=== PATIENT | male | born 1975 | race Native Hawaiian/Other Pacific Islander ===

== ENCOUNTER 2018-02-22 21:46 | Emergency (ER) | payer OTHER ==
[2018-02-22 22:16] VITALS: TEMP 98.4
[2018-02-22] MEDS ORDERED: PROPARACAINE/FLUORESCEIN SOD 100 DROP/5 ML BOTTLE OS STA (22:30)
[2018-02-22] MEDS ORDERED: PROPARACAINE/FLUORESCEIN SOD 100 DROP/5 ML BOTTLE ONE (22:40)
--- NOTE | 2018-02-22 23:10 | ED PDOC ---
HPI: Eye Injury/Pain Time Seen by Provider: 02/22/18 22:24 Chief Complaint (Nursing): Eye Problem Chief Complaint (Provider): Right eye pain History Per: Patient History/Exam Limitations: no limitations Onset/Duration Of Symptoms: Days Current Symptoms Are (Timing): Still Present Additional Complaint(s): 42 yo male with HTN (did not begin medications yet but has Rx) presents with right eye pain for 8 hours. Pt states he was seen by eye doctor this morning and diagnosed with keratitis. Pt was wearing contacts during the day because he is unable to see without them. Pt states when he removed his contacts he began to have a lot of pain in the right eye. No change in vision. Past Medical History Reviewed: Historical Data, Nursing Documentation, Vital Signs Vital Signs: Last Vital Signs Temp 98.4 F 02/22/18 22:11 Pulse 81 02/22/18 22:11 Resp 16 02/22/18 22:11 BP 175/99 H 02/22/18 22:11 Pulse Ox 100 02/22/18 22:11 - Medical History PMH: HTN - Surgical History Surgical History: No Surg Hx - Family History Family History: States: No Known Family Hx - Living Arrangements Living Arrangements: With Family - Social History Current smoker - smoking cessation education provided: No - Home Medications Home Medications: Ambulatory Orders Medication Instructions Recorded oxyCODONE/Acetaminophen [Percocet 1 ea PO Q6H PRN #10 tab 02/22/18 5/325 mg Tab] - Allergies Allergies/Adverse Reactions: Allergies Allergy/AdvReac Type Severity Reaction Status Date / Time No Known Allergies Allergy Verified 02/22/18 22:11 Review of Systems ROS Statement: Except As Marked, All Systems Reviewed And Found Negative Constitutional: Negative for: Fever, Chills Eyes: Positive for: Pain Physical Exam - Reviewed Nursing Documentation Reviewed: Yes Vital Signs Reviewed: Yes - Physical Exam Appears: Positive for: Well, Non-toxic, No Acute Distress Head Exam: Positive for: ATRAUMATIC, NORMAL INSPECTION, NORMOCEPHALIC Skin: Positive for: Normal Color, Warm, DRY Eye Exam: Positive for: EOMI, PERRL, Conjunctival injection, Other (No corneal abrasion, no lesions on the cornea ). Negative for: Normal appearance ENT: Positive for: Normal ENT Inspection Neck: Positive for: Normal Respiratory: Negative for: Accessory Muscle Use, Respiratory Distress Back: Positive for: Normal Inspection Neurologic/Psych: Positive for: Alert, Oriented - ECG O2 Sat by Pulse Oximetry: 100 Disposition - Clinical Impression Clinical Impression: Eye pain - Patient ED Disposition Is Patient to be Admitted: No Counseled Patient/Family Regarding: Diagnosis, Need For Followup, Rx Given - Disposition Referrals: Nathaniel Singh MD [Staff Provider] - Disposition: Routine/Home Disposition Time: 23:05 Condition: STABLE Prescriptions: oxyCODONE/Acetaminophen [Percocet 5/325 mg Tab] 1 ea PO Q6H PRN #10 tab PRN Reason: Pain, Severe (8-10) Instructions: Conjunctivitis (Pinkeye)
[2018-02-22 23:16] VITALS: BP 162/94
[2018-02-22 23:41] VITALS: PULSE 78; RESP 18; O2SAT 99
== END 2018-02-22 23:41 | disposition home or self-care (01) ==
LOC: H.ER 21:46
DX: H57.11 Ocular pain, right eye (principal); I10 Essential (primary) hypertension

== ENCOUNTER 2018-04-19 00:16 | Emergency (ER) | payer OTHER ==
[2018-04-19] MEDS ORDERED: Sodium Chloride 0.9% 1,000 ML IV STA (00:31)
--- NOTE | 2018-04-19 00:49 | ED PDOC ---
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 Of note, patient states that he did have a previous stone in his bladder which had to be removed cystoscopically. PMD: Gopal Wadsworth Past Medical History Reviewed: Historical Data, Nursing Documentation, Vital Signs Vital Signs: Last Vital Signs Temp 97.9 F 04/19/18 00:17 Pulse 59 L 04/19/18 00:17 Resp 16 04/19/18 00:17 BP 128/88 04/19/18 00:17 Pulse Ox 100 04/19/18 00:17 - Medical History PMH: HTN Other PMH: bladder stones - Surgical History Other surgeries: bladder stone cystoscopy - Family History Family History: States: Unknown Family Hx - Social History Current smoker - smoking cessation education provided: No Ex-Smoker (has not smoked in the last 12 months): No Alcohol: None Drugs: Denies - Home Medications Home Medications: Ambulatory Orders Medication Instructions Recorded oxyCODONE/Acetaminophen [Percocet 1 ea PO Q6H PRN #10 tab 02/22/18 5/325 mg Tab] - Allergies Allergies/Adverse Reactions: Allergies Allergy/AdvReac Type Severity Reaction Status Date / Time No Known Allergies Allergy Verified 04/19/18 00:17 Review of Systems ROS Statement: Except As Marked, All Systems Reviewed And Found Negative Gastrointestinal: Positive for: Nausea. Negative for: Vomiting Musculoskeletal: Positive for: Other (right flank pain) Physical Exam - Reviewed Nursing Documentation Reviewed: Yes Vital Signs Reviewed: Yes - Physical Exam Appears: Positive for: No Acute Distress Head Exam: Positive for: ATRAUMATIC, NORMAL INSPECTION, NORMOCEPHALIC Skin: Positive for: Normal Color, Warm, Dry Eye Exam: Positive for: Normal appearance ENT: Positive for: Normal ENT Inspection Neck: Positive for: Normal, Painless ROM, Supple Cardiovascular/Chest: Positive for: Regular Rate, Rhythm Respiratory: Positive for: Normal Breath Sounds. Negative for: Accessory Muscle Use, Respiratory Distress Gastrointestinal/Abdominal: Positive for: Normal Exam, Soft. Negative for: Tenderness Back: Positive for: Normal Inspection. Negative for: L CVA Tenderness, R CVA Tenderness Extremity: Positive for: Normal ROM Neurologic/Psych: Positive for: Alert, Oriented (x3) - Laboratory Results Result Diagrams: 04/19/18 00:52 04/19/18 00:52 - ECG O2 Sat by Pulse Oximetry: 100 (RA) Pulse Ox Interpretation: Normal Medical Decision Making Medical Decision Making: Time: 28 Initial Impression: 42 year old male with acute flank pain Initial Plan: --CT abd + pelvis w/o contrast --EKG --U-dip --CBC with differential --Flomax 0.8mg PO --Normal saline IV --Toradol 30mg IV --UA 0129 CT abd + pelvis w/o contrast FINDINGS: Lower thorax: No acute findings. ABDOMEN: Liver: Normal. No mass. Gallbladder and bile ducts: Normal. No calcified stones. No ductal dilation. Pancreas: Normal. No ductal dilation. Spleen: Normal. No splenomegaly. Adrenals: Normal. No mass. Kidneys and ureters: There is a left renal collecting system calcification. The right kidney is normal. No hydronephrosis. Stomach and bowel: Normal. No obstruction. No mucosal thickening. Appendix: A normal appendix is identified. PELVIS: Bladder: Unremarkable as visualized. Reproductive: Unremarkable as visualized. ABDOMEN and PELVIS: Intraperitoneal space: Normal. No free air. No significant fluid collection. Bones/joints: There is an expansile cystic lesion in the left acetabulum, superior and inferior pubic rami. Soft tissues: There is a fat-containing umbilical hernia. Vasculature: Normal. No abdominal aortic aneurysm. Lymph nodes: Normal. No enlarged lymph nodes. IMPRESSION: No acute intra-abdominal or pelvic abnormality. Expansile cystic lesion in the left pelvis. 0245 On reevaluation, patient reports his pain is resolved and he is requesting to be d/c home. Provider explained that in light of the negative CT results, it is possible he passed a stone prior to imaging. Otherwise, labs show no clinically significant abnormalities. He is advised to follow up his PMD with the diagnosis of renal colic. All questions answered at this time. Scribe Attestation: Documented by Annabel Salinas acting as a scribe for Brandon Kerr MD. Provider Scribe Attestation: All medical record entries made by the Scribe were at my direction and personally dictated by me. I have reviewed the chart and agree that the record accurately reflects my personal performance of the history, physical exam, medical decision making, and the department course for this patient. I have also personally directed, reviewed, and agree with the discharge instructions and disposition. Disposition - Clinical Impression Clinical Impression: Renal colic on right side - Patient ED Disposition Is Patient to be Admitted: No Counseled Patient/Family Regarding: Studies Performed, Diagnosis, Need For Followup - Disposition Referrals: Malcolm Wadsworth MD [Primary Care Provider] - Disposition: Routine/Home Disposition Time: 02:45 Condition: STABLE Instructions: Renal Colic Forms: [employer] ([place])
[2018-04-19 00:59] LABS: BASO # 0.1 K/uL (0.0-0.2); BASO % 1.1 % (0.0-2.0); EOS # 0.2 K/uL (0.0-0.7); EOS % 2.1 % (0.0-4.0); HEMOGLOBIN 15.4 g/dL (12.0-18.0); LYMPH # 3.6 K/uL (1.0-4.3); LYMPH % 43.1 % (20.0-40.0); MEAN CELL VOLUME 82.5 fl (80.0-94.0); MEAN CORPUSCULAR HGB CONC 35.1 g/dL (33.0-37.0); MEAN PLATELET VOLUME 8.6 fl (7.2-11.7); MONO # 0.5 K/uL (0.0-0.8); MONO % 6.5 % (0.0-10.0); NEUT # 3.9 K/uL (1.8-7.0); NEUT % 47.2 % (50.0-75.0); NRBC % 0.1 % (0.0-0.0); RBC 5.31 Mil/uL (4.40-5.90); RED CELL DISTRIBUTION WIDTH 13.5 % (11.5-14.5); WHITE BLOOD COUNT 8.3 K/uL (4.8-10.8)
[2018-04-19 01:17] LABS: BLOOD UREA NITROGEN 19 mg/dl (9-20); CALCIUM 9.3 mg/dL (8.4-10.2); GFR NON-AFRICAN AMERICAN > 60
[2018-04-19 01:56] LABS: ALB/GLOB RATIO 1.2 (1.0-2.1); ALBUMIN 4.1 g/dL (3.5-5.0); BILIRUBIN,DIRECT 0.2 mg/ml (0.0-0.4)
[2018-04-19 02:49] VITALS: BP 141/89; PULSE 81; RESP 18; TEMP 98.1
[2018-04-19 02:50] VITALS: O2SAT 100
[2018-04-19 03:05] LABS: URINE BILIRUBIN NEGATIVE (NEGATIVE); URINE BLOOD NEGATIVE (NEGATIVE); URINE CLARITY CLEAR (Clear); URINE COLOR YELLOW (YELLOW); URINE GLUCOSE (UA) NEG (Normal); URINE LEUKOCYTE ESTERASE NEG Leu/uL (Negative); URINE PROTEIN 30 mg/dL (NEGATIVE); URINE UROBILINOGEN 0.2-1.0 mg/dL (0.2-1.0)
--- NOTE | 2018-04-19 07:42 | CARD ---
APPROVED REPORT Date of service: 04/19/2018 EKG Measurement Heart [id number] <Conclusion> Sinus bradycardia Otherwise normal ECG
--- NOTE | 2018-04-19 08:59 | CT ---
Date of service: 04/19/2018 PROCEDURE: CT Abdomen and Pelvis without intravenous contrast HISTORY: renal colic COMPARISON: None. TECHNIQUE: Without contrast.. Contrast dose: None Radiation dose: Total exam DLP = 343 mGy-cm. This CT exam was performed using one or more of the following dose reduction techniques: Automated exposure control, adjustment of the mA and/or kV according to patient size, and/or use of iterative reconstruction technique. FINDINGS: LOWER THORAX: Trace left posteromedial discoid like atelectasis and/or scarring. LIVER: Unremarkable. No gross lesion or ductal dilatation. GALLBLADDER AND BILE DUCTS: Unremarkable. PANCREAS: Unremarkable. No gross lesion or ductal dilatation. SPLEEN: Unremarkable. ADRENALS: Unremarkable. No mass. KIDNEYS AND URETERS: Nonobstructing 3 to 4 mm calculus left lower renal pole collecting system.. No hydronephrosis. No suspicious appearing mass. VASCULATURE: Unremarkable. No aortic aneurysm. BOWEL: Unremarkable. No obstruction. No gross mural thickening. APPENDIX: Unremarkable. Normal appendix. PERITONEUM: Unremarkable. No free fluid. No free air. LYMPH NODES: Unremarkable. No enlarged lymph nodes. BLADDER: Unremarkable. REPRODUCTIVE: There is mild asymmetrical prominence of the left half of the prostate with the multiple coarse calcifications here. BONES: No acute fracture. There is a expansile cystic appearing osseous lesion involving the left hemipelvis: Left iliac bone ischium, left pubic ramus and also involving the proximal left femoral subtrochanteric metaphyseal region. Some extension to the left intertrochanteric region is possible. OTHER FINDINGS: None. IMPRESSION: Nonobstructing 3 to 4 mm left lower renal pole collecting system calculus. No hydronephrosis or hydroureter. Mild asymmetrical prominence of the prostate with the left-sided prostatic calcifications. Expansile cystic intraosseous pathology involving the left adriana pelvic bones and proximal left femur as detailed above. The cortices here in some parts are very thin-the potential for pathological fracture is worth noting. No acute fracture here is appreciated. Fibrous dysplasia is just 1 consideration. Clinical correlation and follow-up is advised. Concordant results (preliminary interpretation) provided by [employer].
== END 2018-04-19 02:50 | disposition home or self-care (01) ==
LOC: H.ER 00:16
DX: N20.0 Calculus of kidney (principal); I10 Essential (primary) hypertension
CPT/HCPCS: 74176; 80048; 80076; 81003; 85025; 93005; 96374; 99283; J1885; J7030